=== PATIENT | female | born 1940 | race Caucasian/White ===

== ENCOUNTER 2018-03-15 12:33 | Inpatient (IN) | payer MEDICARE ==
[~2018-03-15] VITALS: Ht 160 cm; Wt 79.5 kg
[2018-03-15] MEDS ORDERED: ondansetron/PF 4mg/2ml inj IV ONE (12:40)
[2018-03-15] MEDS ORDERED: normal saline 1000ML IV soln IVB ONE (12:40)
[2018-03-15 13:00] LABS: BASOPHILS % (AUTO) 0.2 % (0-1); EOSINOPHILS # (AUTO) 0.2 X10'3 (0-0.9); EOSINOPHILS % (AUTO) 1.6 % (0-6); HEMATOCRIT 38.1 % (35.0-45.0); LYMPHOCYTES # (AUTO) 1.3 X10'3 (1.1-4.8); LYMPHOCYTES % (AUTO) 11.8 % (21-51); MEAN CORPUSCULAR HEMOGLOBIN 30.1 PG (27.0-31.0); MEAN CORPUSCULAR HGB CONC 34.2 % (33.0-36.5); MEAN CORPUSCULAR VOLUME 88.1 FL (78-98); MEAN PLATELET VOLUME 8.4 FL (7.4-10.4); MONOCYTES % (AUTO) 8.5 % (2-12); NEUTROPHILS # (AUTO) 8.8 X10'3 (1.8-7.7); NEUTROPHILS % (AUTO) 77.9 % (42-75); PLATELET COUNT 290 X10'3 (140-440); RED BLOOD COUNT 4.33 X10'6 (4.20-5.60); RED CELL DISTRIBUTION WIDTH 15.1 % (11.5-14.5); WHITE BLOOD COUNT 11.3 X10'3 (4.5-11.0)
[2018-03-15 13:15] LABS: ALANINE AMINOTRANSFERASE 30 U/L (12-78); ALBUMIN 3.6 G/DL (3.4-5.0); ALBUMIN/GLOBULIN RATIO 0.9 (1.1-1.5); ALKALINE PHOSPHATASE 69 IU/L (46-116); ANION GAP 15 (8-16); ASPARTATE AMINO TRANSFERASE 17 U/L (10-37); BILIRUBIN,TOTAL 0.3 MG/DL (0.1-1.0); BLOOD UREA NITROGEN 61 MG/DL (7-18); BUN/CREATININE RATIO 17.9 (6.6-38.0); CALCIUM 8.9 MG/DL (8.5-10.1); CHLORIDE 104 MMOL/L (99-107); GLUCOSE 121 MG/DL (70-104); LIPASE 1476 U/L (73-393); POTASSIUM 3.2 MMOL/L (3.5-5.1); SODIUM 139 MMOL/L (135-145); TOTAL CARBON DIOXIDE 20.4 MMOL/L (24-32); TOTAL PROTEIN 7.8 G/DL (6.4-8.2); eGFR 13 ML/MIN
[2018-03-15] MEDS ORDERED: magnesium 1gm/100ml D5W IVPB 100 ML IV PRN (14:05)
[2018-03-15] MEDS ORDERED: potassium Cl 40MEQ/NS 500ml 500 ML IV PRN ×2 (14:05)
[2018-03-15] MEDS ORDERED: magnesium Cl slow-release 64mg tablet PO PRN (14:05)
[2018-03-15] MEDS ORDERED: mag hydrox/Alum hydrox/simeth 30ml oral suspension PO PRN (14:05)
[2018-03-15] MEDS ORDERED: morphine 4 MG/ML inj SYRINge IV PRN ×2 (14:05)
[2018-03-15] MEDS ORDERED: ondansetron/PF 4mg/2ml inj IV PRN (14:05)
[2018-03-15] MEDS ORDERED: potassium Cl 20 mEq SR tablet PO PRN ×2 (14:05)
[2018-03-15] MEDS ORDERED: acetaminophen 325mg tablet PO PRN (14:05)
[2018-03-15] MEDS ORDERED: HYDROcodone/acetaminophen 10/325mg tab PO PRN (14:05)
[2018-03-15] MEDS ORDERED: magnesium hydroxide 30ml (MOM) UD suspension PO PRN (14:05)
[2018-03-15] MEDS ORDERED: bisacodyl 10mg suppository rectal RC PRN (14:05)
[2018-03-15] MEDS ORDERED: magnesium 4gm in 100ml NS 100 ML IV PRN (14:05)
[2018-03-15] MEDS ORDERED: HYDROcodone/acetaminophen 5mg/325mg tablet PO PRN (14:05)
[2018-03-15] MEDS ORDERED: insulin Lispro (HumaLOG) vial - multi-dose SQ SCH (14:10)
[2018-03-15] MEDS ORDERED: dextrose 50%-water 50ml dispensing syringe IV PRN ×2 (14:10)
[2018-03-15] MEDS ORDERED: MESSAGE TO PHARMACY PO ONE (14:10)
[2018-03-15] MEDS ORDERED: glucagon, human recombinant 1mg kit SUBCUT PRN (14:10)
[2018-03-15] MEDS ORDERED: dextrose ORAL solution 15 GM/59 ML bottle PO PRN ×2 (14:10)
[2018-03-15] MEDS: Potassium Cl inj 20 MEQ in dextrose 5%-1/2 normal saline 1,000 ML IV SCH ×2 (15:07→20:57)
[2018-03-15] MEDS: pantoprazole 40 MG vial IV SCH (15:08)
[2018-03-15 15:12] LABS: CLARITY,URINE SLIGHTLY CLOUDY (Clear); COLOR,URINE YELLOW (Yellow); GLUCOSE, URINE NEGATIVE (Neg); KETONES,URINE NEGATIVE (Neg); LEUKOCYTE ESTERASE ,URINE TRACE (Neg); NITRITES, URINE NEGATIVE (Neg); OCCULT BLOOD,URINE LARGE (Neg); PH,URINE 5.5 (4.8-8.0); PROTEIN,URINE TRACE mg/dl (Neg); UROBILINOGEN,URINE 0.2 E.U/dL (0.2-1.0)
[2018-03-15 15:13] LABS: UA COLLECTION TYPE CLN CATCH MIDSTREAM
[2018-03-15 15:21] LABS: HYALINE CASTS >30 /LPF (NEGATIVE)
[2018-03-15 15:22] LABS: BACTERIA,URINE 2+ /HPF (Neg); SQUAMOUS EPITHELIAL CELL,UR MANY /LPF (FEW)
[2018-03-15 15:23] LABS: MUCUS STRANDS FEW /LPF (Neg); RBC,URINE 20-50 /HPF (0-2); TRANSITIONAL EPI CELLS,URINE MODERATE /HPF
[2018-03-15] MEDS ORDERED: LISI10TA4 PO (16:49)
[2018-03-15] MEDS: docusate sod 100mg capsule PO SCH (20:00)
[2018-03-15] MEDS: heparin, porcine 5000 units/ml vial SQ SCH (20:36)
[2018-03-15 20:40] VITALS: BP 116/55
[2018-03-15 23:00] VITALS: BP 104/47
[2018-03-16 05:38] LABS: BASOPHILS % (AUTO) 0.7 % (0-1); EOSINOPHILS # (AUTO) 0.2 X10'3 (0-0.9); EOSINOPHILS % (AUTO) 2.6 % (0-6); HEMATOCRIT 31.5 % (35.0-45.0); HEMOGLOBIN 10.7 g/dl (12.0-16.0); LYMPHOCYTES # (AUTO) 1.1 X10'3 (1.1-4.8); LYMPHOCYTES % (AUTO) 17.3 % (21-51); MEAN CORPUSCULAR HEMOGLOBIN 29.7 PG (27.0-31.0); MEAN CORPUSCULAR HGB CONC 33.8 % (33.0-36.5); MEAN CORPUSCULAR VOLUME 87.8 FL (78-98); MEAN PLATELET VOLUME 8.5 FL (7.4-10.4); MONOCYTES # (AUTO) 0.6 X10'3 (0-0.9); MONOCYTES % (AUTO) 9.6 % (2-12); NEUTROPHILS # (AUTO) 4.5 X10'3 (1.8-7.7); NEUTROPHILS % (AUTO) 69.8 % (42-75); PLATELET COUNT 230 X10'3 (140-440); RED BLOOD COUNT 3.59 X10'6 (4.20-5.60); RED CELL DISTRIBUTION WIDTH 15.1 % (11.5-14.5); WHITE BLOOD COUNT 6.4 X10'3 (4.5-11.0)
[2018-03-16 06:00] LABS: ALANINE AMINOTRANSFERASE 19 U/L (12-78); ALBUMIN 2.6 G/DL (3.4-5.0); ALBUMIN/GLOBULIN RATIO 0.8 (1.1-1.5); ALKALINE PHOSPHATASE 53 IU/L (46-116); ANION GAP 11 (8-16); ASPARTATE AMINO TRANSFERASE 9 U/L (10-37); BILIRUBIN,TOTAL 0.3 MG/DL (0.1-1.0); BLOOD UREA NITROGEN 50 MG/DL (7-18); BUN/CREATININE RATIO 24.5 (6.6-38.0); CALCIUM 7.8 MG/DL (8.5-10.1); CHLORIDE 110 MMOL/L (99-107); CHOL/HDL RATIO 3.6 (0.00-4.99); CHOLESTEROL 139 MG/DL (0-200); CREATININE 2.04 MG/DL (0.40-0.90); GLUCOSE 106 MG/DL (70-104); HDL CHOLESTEROL 39 MG/DL (35-60); LDL CHOLESTEROL 89 MG/DL (50-100); LIPASE 310 U/L (73-393); MAGNESIUM 2.3 MG/DL (1.5-2.4); POTASSIUM 3.3 MMOL/L (3.5-5.1); SODIUM 141 MMOL/L (135-145); TOTAL CARBON DIOXIDE 20.4 MMOL/L (24-32); TOTAL PROTEIN 5.8 G/DL (6.4-8.2); TRIGLYCERIDES 81 MG/DL (20-135); eGFR 24 ML/MIN
[2018-03-16 07:00] VITALS: BP 105/53
[2018-03-16] MEDS: K and/or MAG REPLACEMENT MC SCH (08:00)
[2018-03-16] MEDS: docusate sod 100mg capsule PO SCH ×2 (08:00→19:13)
[2018-03-16] MEDS: pantoprazole 40 MG vial IV SCH (08:31)
[2018-03-16] MEDS: heparin, porcine 5000 units/ml vial SQ SCH ×2 (08:33→19:19)
[2018-03-16] MEDS: Potassium Cl inj 20 MEQ in dextrose 5%-1/2 normal saline 1,000 ML IV SCH ×2 (08:33→20:23)
[2018-03-16] MEDS ORDERED: meperidine/PF 100mg/ml syringe ONE (11:24)
[2018-03-16] MEDS ORDERED: levoFLOXACIN-Levaquin 500mg/D5 0 ML IV ONE (11:25)
[2018-03-16] MEDS ORDERED: MIDAZolam 5mg/5ml vial ONE (11:25)
[2018-03-16] MEDS ORDERED: fentaNYL/PF 50MCG/1 ML 2ML syringe ONE (11:25)
[2018-03-16] MEDS ORDERED: iohexol 300 MG/1 ML 50ml polymer ONE (11:25)
[2018-03-16] MEDS ORDERED: diphenhydrAMINE 50 mg/ml inj ONE (11:25)
[2018-03-16] MEDS ORDERED: glucagon, human recombinant 1mg kit ONE (11:25)
[2018-03-16] MEDS ORDERED: LIDOcaine Viscous 15ml cup ONE (11:25)
[2018-03-16 11:45] VITALS: BP 131/67
[2018-03-16 12:00] VITALS: BP 128/43
[2018-03-16 20:00] VITALS: BP 124/53
[2018-03-16 23:00] VITALS: BP 108/48
[2018-03-17] MEDS: Potassium Cl inj 20 MEQ in dextrose 5%-1/2 normal saline 1,000 ML IV SCH ×2 (03:58→13:49)
[2018-03-17 05:41] LABS: ALANINE AMINOTRANSFERASE 19 U/L (12-78); ALBUMIN 2.8 G/DL (3.4-5.0); ALBUMIN/GLOBULIN RATIO 0.8 (1.1-1.5); ALKALINE PHOSPHATASE 60 IU/L (46-116); ANION GAP 8 (8-16); ASPARTATE AMINO TRANSFERASE 16 U/L (10-37); BILIRUBIN,TOTAL 0.3 MG/DL (0.1-1.0); BLOOD UREA NITROGEN 28 MG/DL (7-18); BUN/CREATININE RATIO 25.5 (6.6-38.0); CALCIUM 8.4 MG/DL (8.5-10.1); CHLORIDE 112 MMOL/L (99-107); GLUCOSE 99 MG/DL (70-104); MAGNESIUM 2.2 MG/DL (1.5-2.4); SODIUM 141 MMOL/L (135-145); TOTAL CARBON DIOXIDE 21.3 MMOL/L (24-32); TOTAL PROTEIN 6.3 G/DL (6.4-8.2); eGFR 48 ML/MIN
[2018-03-17 08:00] VITALS: BP 123/63
[2018-03-17] MEDS: docusate sod 100mg capsule PO SCH (08:00)
[2018-03-17] MEDS: K and/or MAG REPLACEMENT MC SCH (08:00)
[2018-03-17] MEDS: heparin, porcine 5000 units/ml vial SQ SCH (08:29)
[2018-03-17] MEDS: pantoprazole 40 MG vial IV SCH (08:31)
[2018-03-17 12:00] VITALS: BP 143/54
== END 2018-03-17 17:26 | disposition home or self-care (01) | DRG 438 ==
LOC: ER 12:34 → ED HOLD 14:05 → SUR 3N 20:23
PROVIDERS: ADMIT Internal Medicine; ATTEND Family Medicine
DX: K85.90 Acute pancreatitis without necrosis or infection, unspecified (principal); N17.0 Acute kidney failure with tubular necrosis; E87.6 Hypokalemia; E11.42 Type 2 diabetes mellitus with diabetic polyneuropathy; E86.0 Dehydration; G89.4 Chronic pain syndrome; I10 Essential (primary) hypertension; R91.8 Other nonspecific abnormal finding of lung field; Z79.899 Other long term (current) drug therapy
CPT/HCPCS: 36415; 71045; 71250; 74176; 74181; 80053; 80061; 81001; 82948; 83036; 83690; 83735; 85025; 86301; 87070; 93005; 99285; C9113; J1200; J1610; J1644; J1956; J2175; J2250; J2405; J3010; J3480; J7030; Q9967